=== PATIENT | male | born 1980 | race Caucasian/White ===

== ENCOUNTER 2021-05-11 19:15 | Emergency (ER) | payer OTHER ==
[2021-05-11] MEDS ORDERED: IBUPROFEN600 MG PO (21:12)
== END 2021-05-11 21:28 | disposition home or self-care (01) ==
LOC: ER1 19:15
DX: S61.412A Laceration without foreign body of left hand, initial encounter (principal); Z23 Encounter for immunization; W25.XXXA Contact with sharp glass, initial encounter; Y92.89 Other specified places as the place of occurrence of the external cause; Y99.0 Civilian activity done for income or pay
CPT/HCPCS: 12001; 73130; 90471; 90715; 99283